=== PATIENT | female | born 1985 ===

== ENCOUNTER 2024-12-30 13:19 | Emergency (ER) | payer OTHER ==
[~2024-12-30] VITALS: Ht 154.9 cm; Wt 52.2 kg
[2024-12-30] MEDS ORDERED: ASPIRIN325 MG PO (13:40)
[2024-12-30] MEDS ORDERED: ZOLOFT50 MG PO (13:40)
[2024-12-30] MEDS ORDERED: CLONAZEPAM0.5 MG PO (13:40)
[2024-12-30] MEDS ORDERED: LIDOCAINE HCL5 ML TOP (15:56)
== END 2024-12-30 16:15 | disposition home or self-care (01) ==
LOC: ER 13:19
DX: B00.9 Herpesviral infection, unspecified (principal); Z91.018 Allergy to other foods; Z88.8 Allergy status to other drugs, medicaments and biological substances; Z86.73 Personal history of transient ischemic attack (TIA), and cerebral infarction without residual deficits